=== PATIENT | male | born 1995 | race Caucasian/White ===

== ENCOUNTER 2018-04-14 18:49 | Emergency (ER) | payer BC ==
[2018-04-14 19:26] LABS: Hematocrit 46 % (42-52); Hemoglobin 15.8 g/dl (14.0-18.0); Mean Corpuscular HGB Conc 34 g/dl (31-36); Mean Corpuscular Hemoglobin 30 pg (27-31); Mean Corpuscular Volume 87 fL (80-94); Mean Platelet Volume 7.4 um3 (7.4-10.4); Platelet Count 243 10^3/ul (150-450); Red Blood Count 5.31 10^6/ul (4.00-5.40); Red Cell Distribution Width 12 % (10.5-15); White Blood Count 16.6 10^3/ul (3.5-10.8)
[2018-04-14] MEDS ORDERED: Haloperidol INJ IV/IM* 5 MG/ML AMP IM ONE (19:37)
[2018-04-14] MEDS ORDERED: diPHENhydraMINE IV* 50 MG/ML 1 ml VIAL (BENADRYL) IM ONE (19:37)
[2018-04-14] MEDS ORDERED: LORazepam INJ* 2 MG/ML 1 ML VIAL IM ONE (19:37)
[2018-04-14 19:59] LABS: EGFR Non-African American 51.1 (>60)
[2018-04-14 20:02] LABS: ABS Basophils 0.1 10^3/ul (0-0.2); ABS Eosinophils 0.1 10^3/ul (0-0.6); ABS Lymphocytes 2.2 10^3/ul (1.0-4.8); ABS Monocytes 1.6 10^3/ul (0-0.8); ABS Neutrophils 12.6 10^3/ul (1.5-7.7); ABS Nucleated RBC 0 10^3/ul; Eosinophil % 0.8 % (0-6); Lymphocyte % 13.2 % (25-47); Nucleated Red Blood Cells % 0
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
[2018-04-14 21:54] LABS: Urine Appearance Cloudy; Urine Blood Negative (Negative); Urine Color Yellow; Urine Ketones Negative (Negative); Urine Protein 1+(30 mg/dL) (Negative); Urine Specific Gravity 1.017 (1.010-1.030); Urine Urobilinogen Negative (Negative)
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
[2018-04-15 03:49] VITALS: BP 113/79
--- NOTE | 2018-04-15 03:50 | ED ---
Feliciano Blanchard Jade, cindyed for Alex Anderson on 04/15/18 at 0345 . Progress - Progress Note Progress Note: Pt is alert and oriented. Course/Dx - Course Course Of Treatment: Pt is alert and oriented. He will be discharged, escorted by the police. - Diagnoses Provider Diagnoses: Substance abuse Discharge - Sign-Out/Discharge Documenting (check all that apply): Discharge/Admit/Transfer - Discharge, Receiving Sign-Out Receiving patient FROM: Maxx Buchanan - Discharge Plan Condition: Stable Disposition: HOME Patient Education Materials: Cannabis Abuse (ED) Referrals: [facility] [Outside] - 3 Days - Billing Disposition and Condition Condition: STABLE Disposition: Home The documentation as recorded by the Feliciano martin Jade accurately reflects the service I personally performed and the decisions made by Monica villaseñor Emmanuel.
== END 2018-04-15 03:57 | disposition home or self-care (01) ==
LOC: ED 18:49
DX: F19.10 Other psychoactive substance abuse, uncomplicated (principal); R41.0 Disorientation, unspecified
CPT/HCPCS: 36415; 70450; 72125; 80053; 80307; 80320; 80329; 81003; 81015; 82550; 83605; 85025; 87086; 96372; 99285; G0480; J1200; J1630; J2060